=== PATIENT | male | born 1990 | race American Indian/Alaskan Native ===

== ENCOUNTER 2016-04-09 13:14 | Emergency (ER) | payer SELFPAY ==
[2016-04-09 14:38] VITALS: BP 157/106
== END 2016-04-09 21:30 | disposition left against medical advice (07) ==
LOC: ED 13:14
DX: S69.91XA Unspecified injury of right wrist, hand and finger(s), initial encounter (principal); Z91.030 Bee allergy status; X58.XXXA Exposure to other specified factors, initial encounter; Y93.89 Activity, other specified; Y99.9 Unspecified external cause status; Y92.89 Other specified places as the place of occurrence of the external cause; Z53.21 Procedure and treatment not carried out due to patient leaving prior to being seen by health care provider